=== PATIENT | male | born 1980 | race Caucasian/White ===

== ENCOUNTER → 2016-08-16 | Outpatient (CLI) | payer BC ==
[2016-08-16 16:40] LABS: CHLORIDE,CL 110 mmol/L (98-110); SODIUM,NA 143 mmol/L (136-146)
== END | disposition home or self-care (01) ==
LOC: MW.CHFP 16:00
PROVIDERS: ATTEND Emergency Medicine
DX: E10.9 Type 1 diabetes mellitus without complications (principal)
CPT/HCPCS: 36415; 80048; 83036

== ENCOUNTER 2017-02-11 16:50 | Emergency (ER) | payer BC ==
[2017-02-11] MEDS ORDERED: Lidocaine 1% 20 ML MDV INJECT ONE (17:03)
--- NOTE | 2017-02-11 17:17 | EDM.PDOC ---
ED HPI GENERAL MEDICAL PROBLEM - General Chief Complaint: Laceration Stated Complaint: LACERATION LT THUMB Time Seen by Provider: 02/11/17 17:15 Source of Information: Reports: Patient History Limitations: Reports: No Limitations - History of Present Illness INITIAL COMMENTS - FREE TEXT/NARRATIVE: HISTORY AND PHYSICAL: History of present illness: [Patient comes to the emergency room complaining of a laceration to his left thumb PIP joint. He was cleaning a deer when the knife slipped cutting into his thumb. He complains of pain and bleeding. Denies numbness, tingling, diminished range of motion. Tetanus is up-to-date. He has no other complaints or concerns.] Review of systems: As per history of present illness and below otherwise all systems reviewed and negative. Past medical history: As per history of present illness and as reviewed below otherwise noncontributory. Surgical history: As per history of present illness and as reviewed below otherwise noncontributory. Social history: No reported history of drug or alcohol abuse. Family history: As per history of present illness and as reviewed below otherwise noncontributory. Physical exam: HEENT: Atraumatic, normocephalic. Extremities: 2.5 cm linear laceration to left PIP joint dorsum of left hand. Atraumatic, negative for cords or calf pain. Neurovascular unremarkable. Neuro: Awake, alert, oriented. Motor and sensory unremarkable throughout. Exam nonfocal. Impression: [Laceration, left thumb] Plan: [Wound is closed without difficulty see procedure note. Wound care is reviewed with the patient. Start cephalexin 500 mg #21 sig 1 by mouth 3 times a day 0 refills. Tylenol or ibuprofen as needed. All questions are answered and concerns are addressed.] Definitive disposition and diagnosis as appropriate pending reevaluation and review of above. Left 1-Thumb Pain Score (Numeric/FACES): 2 - Related Data Allergies Allergy/AdvReac Type Severity Reaction Status Date / Time No Known Allergies Allergy Verified 02/11/17 17:02 Home Meds: Home Meds Insulin Aspart [NovoLOG] 2 - 6 units SQ ASDIRECTED 02/11/17 [History] Insulin Glarg,Human.Rec.Analog [LantUS Solostar] 16 units SQ BEDTIME 02/11/17 [ History] Past Medical History Cardiovascular History: Reports: High Cholesterol Endocrine/Metabolic History: Reports: Diabetes, Type I - Infectious Disease History Infectious Disease History: Reports: Chicken Pox Social & Family History - Family History Family Medical History: Noncontributory - Tobacco Use Smoking Status *Q: Never Smoker - Recreational Drug Use Recreational Drug Use: No ED ROS GENERAL - Review of Systems Review Of Systems: ROS reveals no pertinent complaints other than HPI. ED EXAM, SKIN/RASH Exam: See Below Course - Vital Signs Last Recorded V/S: Last Vital Signs Temp 95.8 F 02/11/17 16:58 Pulse 86 02/11/17 18:02 Resp 16 02/11/17 18:02 BP 107/59 L 02/11/17 18:02 Pulse Ox 100 02/11/17 18:02 - Orders/Labs/Meds Meds: Medications Discontinued Medications Generic Name Dose Route Start Last Admin Trade Name Jono PRN Reason Stop Dose Admin Bacitracin 1 dose 02/11/17 17:43 02/11/17 17:58 Bacitracin Oint 1 Gm TOP 02/11/17 17:44 1 dose ONETIME ONE Administration Lidocaine HCl 20 ml 02/11/17 17:03 02/11/17 17:12 Xylocaine 1% INJECT 02/11/17 17:04 20 ml ONETIME ONE Administration Departure - Departure Time of Disposition: 17:50 Disposition: Home, Self-Care 01 Condition: Good Clinical Impression: Laceration - Discharge Information Instructions: Laceration Care, Adult Referrals: PCP,None [Primary Care Provider] - Forms: ED Department Discharge Additional Instructions: The following information is given to patients seen in the emergency department who are being discharged to home. This information is to outline your options for follow-up care. We provide all patients seen in our emergency department with a follow-up referral. The need for follow-up, as well as the timing and circumstances, are variable depending upon the specifics of your emergency department visit. If you don't have a primary care physician on staff, we will provide you with a referral. We always advise you to contact your personal physician following an emergency department visit to inform them of the circumstance of the visit and for follow-up with them and/or the need for any referrals to a consulting specialist. The emergency department will also refer you to a specialist when appropriate. This referral assures that you have the opportunity for follow-up care with a specialist. All of these measure are taken in an effort to provide you with optimal care, which includes your follow-up. Under all circumstances we always encourage you to contact your private physician who remains a resource for coordinating your care. When calling for follow-up care, please make the office aware that this follow-up is from your recent emergency room visit. If for any reason you are refused follow-up, please contact the [facility] emergency department at and asked to speak to the emergency department charge nurse. [facility] [address] [place] [id number] Follow-up with your primary care provider at the clinic listed above in 48-72 hours. Keep clean and dry for 48 hours. Start antibiotic as prescribed. Sutures out in 7 days. Return to ER as needed as discussed.
[2017-02-11] MEDS ORDERED: Bacitracin Oint 1 GM U/D Packet TOP ONE (17:43)
== END 2017-02-11 18:01 | disposition home or self-care (01) ==
LOC: MW.ED 16:50
DX: S61.012A Laceration without foreign body of left thumb without damage to nail, initial encounter (principal); E10.9 Type 1 diabetes mellitus without complications; W26.0XXA Contact with knife, initial encounter
CPT/HCPCS: 12001; 99282

== ENCOUNTER 2019-06-16 16:54 | Emergency (ER) | payer BC ==
--- NOTE | 2019-06-16 18:08 | EDM.PDOC ---
ED HPI GENERAL MEDICAL PROBLEM - General Chief Complaint: Laceration Stated Complaint: STITICHES NEEDED ON HIS HEAD Time Seen by Provider: 06/16/19 18:07 Source of Information: Reports: Patient History Limitations: Reports: No Limitations - History of Present Illness INITIAL COMMENTS - FREE TEXT/NARRATIVE: HISTORY AND PHYSICAL: History of present illness: Patient is a 38-year-old male presents the ED with complaint of laceration to his head. Patient states that he was putting a fence and and he hit his head on the post pounder. He denies loss of consciousness, dizziness, visual disturbances, vomiting. Review of systems: As per history of present illness and below otherwise all systems reviewed and negative. Past medical history: As per history of present illness and as reviewed below otherwise noncontributory. Surgical history: As per history of present illness and as reviewed below otherwise noncontributory. Social history: No reported history of drug or alcohol abuse. Family history: As per history of present illness and as reviewed below otherwise noncontributory. Physical exam: General: Patient sitting comfortably in no acute distress and nontoxic appearing HEENT: There is a 2 and half centimeter laceration to the top of the scalp. Atraumatic, normocephalic, pupils reactive, negative for conjunctival pallor or scleral icterus, mucous membranes moist, throat clear, neck supple, nontender, trachea midline. No meningeal signs. Lungs: Clear to auscultation, breath sounds equal bilaterally, chest nontender. Heart: S1S2, regular, negative for clicks, rubs, or overt murmur. Abdomen: Soft, nondistended, nontender. Negative for masses or hepatosplenomegaly. Negative for costovertebral tenderness. No rigidity, rebound , guarding. Pelvis: Stable nontender. Genitourinary: Deferred. Rectal: Deferred. Extremities: Atraumatic, negative for cords or calf pain. Neurovascular unremarkable. Neuro: Awake, alert, oriented. Cranial nerves II through XII unremarkable. Cerebellum unremarkable. Motor and sensory unremarkable throughout. Exam nonfocal. Notes: Diagnostics: None Therapeutics: Boswell - see procedure note Prescriptions: none Impression: Scalp laceration Plan: Follow up for staple removal in 7 days Return to ED as needed as discussed Definitive disposition and diagnosis as appropriate pending reevaluation and review of above. - Related Data Allergies Allergy/AdvReac Type Severity Reaction Status Date / Time No Known Allergies Allergy Verified 06/16/19 17:47 Home Meds: Home Meds Insulin Aspart (Niacinamide) [Fiasp Penfill 100 Unit/ml Cart] 1 dose INJECT ASDIRECTED 06/16/19 [History] Insulin Degludec [Tresiba] 1 dose INJECT ASDIRECTED 06/16/19 [History] Past Medical History HEENT History: Reports: None Cardiovascular History: Reports: High Cholesterol Respiratory History: Reports: None Gastrointestinal History: Reports: None Genitourinary History: Reports: None Musculoskeletal History: Reports: None Neurological History: Reports: None Psychiatric History: Reports: None Endocrine/Metabolic History: Reports: Diabetes, Type I Hematologic History: Reports: None Immunologic History: Reports: None Oncologic (Cancer) History: Reports: None Dermatologic History: Reports: None - Infectious Disease History Infectious Disease History: Reports: None - Past Surgical History Head Surgeries/Procedures: Reports: None HEENT Surgical History: Reports: None Cardiovascular Surgical History: Reports: None Respiratory Surgical History: Reports: None GI Surgical History: Reports: None Male Surgical History: Reports: None Endocrine Surgical History: Reports: None Neurological Surgical History: Reports: None Musculoskeletal Surgical History: Reports: None Oncologic Surgical History: Reports: None Dermatological Surgical History: Reports: None Social & Family History - Family History Family Medical History: Noncontributory - Tobacco Use Smoking Status *Q: Never Smoker Second Hand Smoke Exposure: No - Caffeine Use Caffeine Use: Reports: Coffee - Recreational Drug Use Recreational Drug Use: No ED ROS GENERAL - Review of Systems Review Of Systems: Comprehensive ROS is negative, except as noted in HPI. ED EXAM, SKIN/RASH Exam: See Below (see dictation) ED SKIN PROCEDURES - Laceration/Wound Repair Zachary Appearance: Superficial, Subcutaneous, Linear, Clean Distal NVT: Neuro & Vascular Intact, No Tendon Injury Skin Prep: Chlorhexidine (Hibiciens), Saline Saline Irrigation (cc's): 250 Exploration/Debridement/Repair: Wound Explored, In a Bloodless Field, Explored to Base, No Foreign Material Found Closed with: Elin Lac/Wound length In cm: 2.5 # of Sutures: 4 Course - Vital Signs Last Recorded V/S: Last Vital Signs Temp 97.0 F 06/16/19 17:49 Pulse 76 06/16/19 17:49 Resp 18 06/16/19 17:49 BP 111/57 L 06/16/19 17:49 Pulse Ox 98 06/16/19 17:49 Departure - Departure Time of Disposition: 18:07 Disposition: Home, Self-Care 01 Condition: Good Clinical Impression: Scalp laceration - Discharge Information Instructions: Laceration Care, Adult, [id number] Referrals: Thom Lloyd MD [Primary Care Provider] - Forms: ED Department Discharge Additional Instructions: The following information is given to patients seen in the emergency department who are being discharged to home. This information is to outline your options for follow-up care. We provide all patients seen in our emergency department with a follow-up referral. The need for follow-up, as well as the timing and circumstances, are variable depending upon the specifics of your emergency department visit. If you don't have a primary care physician on staff, we will provide you with a referral. We always advise you to contact your personal physician following an emergency department visit to inform them of the circumstance of the visit and for follow-up with them and/or the need for any referrals to a consulting specialist. The emergency department will also refer you to a specialist when appropriate. This referral assures that you have the opportunity for follow-up care with a specialist. All of these measure are taken in an effort to provide you with optimal care, which includes your follow-up. Under all circumstances we always encourage you to contact your private physician who remains a resource for coordinating your care. When calling for follow-up care, please make the office aware that this follow-up is from your recent emergency room visit. If for any reason you are refused follow-up, please contact the [facility] Emergency Department at and asked to speak to the emergency department charge nurse. [facility] [address] [place] [address] [id number] [id number] Follow up for suture removal in 7 days Return to ED as needed as discussed Sepsis Event Note - Evaluation Sepsis Screening Result: No Definite Risk - Focused Exam Vital Signs: Vital Signs Temp Pulse Resp BP Pulse Ox 06/16/19 17:49 97.0 F 76 18 111/57 L 98 Date Exam was Performed: 06/16/19 Time Exam was Performed: 18:57
== END 2019-06-16 18:27 | disposition home or self-care (01) ==
LOC: MW.ED 16:54
DX: S01.01XA Laceration without foreign body of scalp, initial encounter (principal); E10.9 Type 1 diabetes mellitus without complications; W22.8XXA Striking against or struck by other objects, initial encounter
CPT/HCPCS: 12001; 99282

== ENCOUNTER 2019-06-27 10:20 | Emergency (ER) | payer BC | END 2019-06-27 10:30 | disposition left against medical advice (07) | LOC: MW.ED 10:20 | DX: Z53.21 Procedure and treatment not carried out due to patient leaving prior to being seen by health care provider (principal) ==

== ENCOUNTER 2023-05-04 21:24 | Emergency (ER) | payer BC, OTHER ==
[2023-05-04] MEDS ORDERED: Octyl 2-Cyanoacrylate 1 g/1 mL 1 APPLIC PEN TOP ONE (23:01)
== END 2023-05-04 23:43 | disposition home or self-care (01) ==
LOC: MW.ED 21:24
DX: S61.215A Laceration without foreign body of left ring finger without damage to nail, initial encounter (principal); E10.9 Type 1 diabetes mellitus without complications; Z79.4 Long term (current) use of insulin; W26.0XXA Contact with knife, initial encounter
CPT/HCPCS: 12001; 99282; A9270; 99283